=== PATIENT | male | born 1970 | race Caucasian/White ===

== ENCOUNTER 2023-10-11 10:40 | Emergency (ER) | payer MEDICARE, OTHER ==
[2023-10-11] MEDS ORDERED: FUROSEMIDE 10 MG/ML 4 ML VIAL ONE (16:12)
[2023-10-13] MEDS ORDERED: IPRATROPIUM-ALBUTEROL 3 ML NEB ONE (16:31)
--- NOTE | 2023-11-10 00:06 | XR ---
EXAMINATION TYPE: XR chest 2V DATE OF EXAM: 10/11/2023 COMPARISON: Chest radiographs from 10/30/2012 TECHNIQUE: XR chest 2V Frontal and lateral views of the chest. CLINICAL INDICATION:Male, 52 years old with history of LOW EXT SWELLING; FINDINGS: Lungs/Pleura: There is no evidence of pleural effusion, focal consolidation, or pneumothorax. Pulmonary vascularity: Unremarkable. Heart/mediastinum: Cardiomediastinal silhouette is unremarkable. Musculoskeletal: No acute osseous pathology. IMPRESSION: No acute cardiopulmonary disease/process.
== END 2023-10-11 16:40 | disposition home or self-care (01) ==
LOC: EC 10:40
CPT/HCPCS: 71046; 93005; 96374; 99284

== ENCOUNTER 2023-10-13 20:00 | Inpatient (IN) | payer MEDICARE, OTHER ==
[~2023-10-13 20:00] MED LIST: IPRATROPIUM-ALBUTEROL 3 ML NEB ONE; SODIUM CHLORIDE 0.9% 1,000 ML BAG ONE
[2023-10-13] MEDS ORDERED: FUROSEMIDE 10 MG/ML 4 ML VIAL ONE (20:25)
[2023-10-13] MEDS ORDERED: MORPHINE SULFATE 4 MG/ML SYRINGE ONE (21:39)
[2023-10-13] MEDS ORDERED: SODIUM CHLORIDE 0.9% 1,000 ML BAG ONE (23:59)
[2023-10-14] MEDS ORDERED: predniSONE 20 MG TAB ONE (00:27)
[2023-10-14] MEDS ORDERED: MORPHINE SULFATE 4 MG/ML SYRINGE ONE ×2 (06:08→10:27)
[2023-10-14] MEDS ORDERED: IPRATROPIUM-ALBUTEROL 3 ML NEB ONE ×2 (08:36→23:59)
[2023-10-14] MEDS ORDERED: NICOTINE 21MG/24HR PATCH TRANSDERM ONE (13:15)
[2023-10-14] MEDS ORDERED: methylPREDNISolone SOD SUCCI 125 MG/2 ML VIAL ONE ×2 (13:15→23:47)
[2023-10-14] MEDS ORDERED: HEPARIN SODIUM,PORCINE 5,000 UNIT/ML 1 ML VIAL ONE ×2 (13:16→21:44)
[2023-10-14] MEDS ORDERED: OLANZapine 5 MG TAB ONE (23:59)
[2023-10-14] MEDS ORDERED: PRAZOSIN 1 MG CAP ONE (23:59)
[2023-10-14] MEDS ORDERED: SODIUM CHLORIDE 0.9% 1,000 ML BAG ONE (23:59)
[2023-10-14] MEDS ORDERED: QUEtiapine 200 MG TAB ONE (23:59)
[2023-10-15] MEDS ORDERED: methylPREDNISolone SOD SUCCI 125 MG/2 ML VIAL ONE ×2 (06:34→13:02)
[2023-10-15] MEDS ORDERED: LEVOTHYROXINE 100 MCG TAB ONE (06:37)
[2023-10-15] MEDS ORDERED: PANTOPRAZOLE 40 MG TABLET PO ONE (08:59)
[2023-10-15] MEDS ORDERED: NICOTINE 21MG/24HR PATCH TRANSDERM ONE (08:59)
[2023-10-15] MEDS ORDERED: HEPARIN SODIUM,PORCINE 5,000 UNIT/ML 1 ML VIAL ONE ×2 (09:00→21:36)
[2023-10-15] MEDS ORDERED: QUEtiapine 200 MG TAB ONE (23:59)
[2023-10-15] MEDS ORDERED: ARIPiprazole 10 MG TAB ONE (23:59)
[2023-10-15] MEDS ORDERED: OLANZapine 5 MG TAB ONE (23:59)
[2023-10-15] MEDS ORDERED: PRAZOSIN 1 MG CAP ONE (23:59)
[2023-10-15] MEDS ORDERED: IPRATROPIUM-ALBUTEROL 3 ML NEB ONE (23:59)
[2023-10-16] MEDS ORDERED: IPRATROPIUM-ALBUTEROL 3 ML NEB ONE ×2 (00:29→04:26)
[2023-10-16] MEDS ORDERED: methylPREDNISolone SOD SUCCI 125 MG/2 ML VIAL ONE (05:55)
[2023-10-16] MEDS ORDERED: LEVOTHYROXINE 125 MCG TAB ONE (05:55)
[2023-10-16] MEDS ORDERED: PANTOPRAZOLE 40 MG TABLET PO ONE (08:56)
[2023-10-16] MEDS ORDERED: NICOTINE 21MG/24HR PATCH TRANSDERM ONE (08:56)
[2023-10-16] MEDS ORDERED: HEPARIN SODIUM,PORCINE 5,000 UNIT/ML 1 ML VIAL ONE (08:57)
--- NOTE | 2023-11-11 11:45 | US ---
[id number] DOMINIQUE NORWOOD : 1970 EXAM: Venous Doppler ultrasound of the lower extremities bilaterally DATE: 10/13/2023 INDICATION: FEET SWELLING, LEG CRAMPING. TECH IMP: BILATERAL LEG APPEAR NEG FOR DVT.'' COMPARISON: None, please note PACS downtime occurred during the radiologist interpretation of these i mages with limited priors/reports. TECHNIQUE: Multiple wolff scale, color Doppler and Doppler spectral ultrasound images were obtained of lower extremity veins. FINDINGS: Right lower extremity: -Common Femoral vein: Normal compressibility, color Doppler flow and venous spectral waveforms with augmentation. -Femoral vein: Normal compressibility. -Popliteal vein: Normal compressibility, color Doppler flow and venous spectral waveforms with augmen tation. -Posterior tibial vein: Normal color Doppler flow. -Greater saphenous vein: Normal compressibility, color Doppler flow and venous spectral wavefor ms with augmentation. Left lower extremity: -Common Femoral vein: Normal compressibility, color Doppler flow and venous spectral waveforms with augmentation. -Femoral vein: Normal compressibility. -Popliteal vein: Normal compressibility, color Doppler flow and venous spectral waveforms with augmen tation. -Posterior tibial vein: Normal color Doppler flow. -Greater saphenous vein: Normal compressibility, color Doppler flow and venous spectral wavefor ms with augmentation. Other: No significant findings. IMPRESSION: No ultrasound evidence for deep venous thrombosis of either lower extremity.
--- NOTE | 2023-11-11 17:36 | CDI ---
Documentation Clarification Form Date: 11/11/2023 05:25:32 PM From: Virgen Caldwell Phone: Admit Date: 10/13/2023 08:00:00 PM Patient Name: Arnie Melton Visit Number: [id number] Discharge Date: 10/16/2023 12:17:00 PM ATTENTION: The Clinical Documentation Specialists (CDI) and [facility] Coding Staff appreciate your assistance in clarifying documentation. Please respond to the clarification below the line at the bottom and electronically sign. The CDI & [facility] Coding staff will review the response and follow-up if needed. Please note: Queries are made part of the Legal Health Record. If you have any questions, please contact the author of this message via ITS. Doctor/Provider: Bc Martinez Conflicting types of Rhabdomyolysis is documented. Additional clarification regarding the type of rhabdomyolysis is requested. Unspec Rhabdo- per ED Note and DCS Nephro Consult- nontrauma Rhabdo Pulm Note 10/13- Rhabdo d/t to fall History/Risk Factors: 53yo M, ZACHARY, BPD, hypothyroidism induced myopathy, HTN, AECOPD Clinical Indicators: SOB and BLE swelling. Pt received fluids and CK trended down. Treatment: Synthroid was increased to more therapeutic and was counselled on importance of compliance and short course of steroids. Please clarify the type of rhabdomyolysis, if known: [ ] Traumatic rhabdomyolysis due to fall [ ] Non traumatic rhabdomyolysis due to medication (please specify) [ ] Other, please specify [ ] Unable to Determine (Template Last Revised: May 2020) [ ] Unable to Determine MTDD
--- NOTE | 2023-11-13 15:53 | XR ---
DOMINIQUE NORWOOD : 1970 EXAM: Chest radiograph 2 view. DATE: 10/13/2023 08:55 INDICATION: Reason for study: BILATERAL LOWER LEG EDEMA X 2 WEEKS COMPARISON: None, please note PACS downtime occurred during the radiologist interpretation of these i mages with limited priors/reports.. TECHNIQUE: Frontal and lateral views of the chest. FINDINGS: Lungs/Pleura: There is no evidence of pleural effusion, focal consolidation, or pneumothorax. Pulmonary vascularity: Unremarkable. Heart/mediastinum: Cardiomediastinal silhouette is unremarkable. Musculoskeletal: No acute osseous pathology. IMPRESSION: No acute cardiopulmonary disease/process.
--- NOTE | 2023-11-19 09:26 | CA ---
Transthoracic Echo Report Name: Arnie Melton Age: 52 Gender: O : 1970 Exam Date: 10/16/2023 08:30 Exam Location: [place] [facility] Ht (in): 67 Wt (lb): 279 Ordering Physician: Attending/Referring Phys: Customer Retention Representative Zahida Leblanc RDCS Procedure CPT: Indications: Chronic systolic (congestive) heart failure Cardiac Hx: Technical Quality: Fair Contrast 1: Definity Total Dose (mL): 2 Contrast 2: Total Dose (mL): MEASUREMENTS (Male / Female) Normal Values 2D ECHO LV Diastolic Diameter PLAX 5.2 cm 4.2 - 5.9 / 3.9 - 5.3 cm LV Systolic Diameter PLAX 3.6 cm IVS Diastolic Thickness 1.4 cm 0.6 - 1.0 / 0.6 - 0.9 cm LVPW Diastolic Thickness 1.2 cm 0.6 - 1.0 / 0.6 - 0.9 cm LV Relative Wall Thickness 0.5 RV Internal Dim ED PLAX 2.5 cm LA Systolic Diameter LX 4.0 cm 3.0 - 4.0 / 2.7 - 3.8 cm LV Diastolic Volume MOD BP 101.2 cm??? 67 - 155 / 56 - 104 cm??? LV Systolic Volume MOD BP 51.6 cm??? 22 - 58 / 19 - 49 cm??? LV Ejection Fraction MOD BP 49.0 % >= 55 % LV Diastolic Volume MOD 4C 113.5 cm??? LV Systolic Volume MOD 4C 50.2 cm??? LV Ejection Fraction MOD 4C 55.7 % LV Diastolic Length 4C 8.6 cm LV Systolic Length 4C 7.6 cm LV Diastolic Volume MOD 2C 83.9 cm??? LV Systolic Volume MOD 2C 52.7 cm??? LV Ejection Fraction MOD 2C 37.2 % LV Diastolic Length 2C 8.0 cm LV Systolic Length 2C 7.7 cm M-MODE Aortic Root Diameter MM 2.7 cm LA Systolic Diameter MM 3.7 cm LA Ao Ratio MM 1.4 AV Cusp Separation MM 2.0 cm DOPPLER Mitral E Point Velocity 90.4 cm/s Mitral A Point Velocity 84.6 cm/s Mitral E to A Ratio 1.1 MV Deceleration Time 223.9 ms MV E' Velocity 5.5 cm/s Mitral E to MV E' Ratio 16.4 TR Peak Velocity 219.0 cm/s TR Peak Gradient 19.2 mmHg Right Ventricular Systolic Press 24.2 mmHg FINDINGS Left Ventricle Left ventricular ejection fraction is estimated at 45-50%. Moderately increased septal wall thickness. Mildly decreased left ventricular ejection fraction. Left ventricular cavity size normal. No evidence of LV thrombus Right Ventricle Normal right ventricular size and function. Right ventricular systolic pressure within normal limits. Right Atrium Normal right atrial size. Left Atrium Normal left atrial size. Mitral Valve Structurally normal mitral valve. Trace mitral regurgitation. No mitral stenosis. Aortic Valve Trileaflet aortic valve. No aortic stenosis. No aortic regurgitation. Tricuspid Valve Structurally normal tricuspid valve. Trace tricuspid regurgitation. No tricuspid stenosis. Pulmonic Valve Structurally normal pulmonic valve. Trace pulmonic regurgitation. Pericardium No pericardial or pleural effusion. Aorta Normal size aortic root and proximal ascending aorta. CONCLUSIONS Left ventricular ejection fraction is estimated at 45-50%. Moderately increased septal wall thickness. Normal right ventricular size and function. No significant valvular dysfunction Previewed by: Dr Sang Paul (Electronically Signed) Final Date: 16 October 2023 17:22
--- NOTE | 2023-11-28 14:39 | HP ---
HISTORY AND PHYSICAL The patient was in room 457 upon my evaluation. HISTORY OF PRESENT ILLNESS: This is a 53-year-old gentleman, who has a history of hypertension, hyperlipidemia, nicotine dependence with COPD, who presented for evaluation of bilateral lower extremity pain, shortness of breath, weakness, increasing edema of the lower extremities. The patient states that for the last week and a half, he has noticed increasing lower extremity pain as well as increasing lower extremity swelling. He [facility] today to be evaluated for his swelling of the lower extremities, and was sent to the emergency room due to concern over perfusion issues since there was discoloration of both visible lower extremities. The patient otherwise denies fevers, chills, nausea, vomiting, chest pain, palpitations, syncope, presyncope. He does report increasing shortness of breath. He continues to be an active nicotine user with no intention to quit. In the emergency room, the patient was noted to be afebrile, 125/79, heart rate 71, 98% on room air. Initial workup CBC showed white blood cell count of 8.2, hemoglobin of 14.5, platelets of 301. Basic metabolic panel demonstrated elevated creatinine to 1.3. BNP was less than 20. Liver function test showed elevation of AST to 58, ALT to 24, alkaline phosphatase to 58. Creatine kinase was 2534. Coags are unremarkable. EKG demonstrated normal sinus rhythm with overall low QRS. Chest x-ray show no acute cardiopulmonary processes. REVIEW OF SYSTEMS: Noted in the HPI. All other systems are reviewed and only pertinent positives and negatives are listed in the HPI. PHYSICAL EXAMINATION: GENERAL: The patient is in no apparent distress. Appears nontoxic. RESPIRATORY: Demonstrates diffuse wheezing throughout all lung bolaños. No evidence of crackles. CARDIOVASCULAR: The patient has a quiet precordium, though appears regular without murmurs. EXTREMITIES: There is bilateral pitting edema to the mid key, which is 2+. GASTROINTESTINAL: Soft, nontender to palpation, nondistended. GENITOURINARY: Suprapubic tenderness is not present. Costovertebral angle tenderness is not present. MUSCULOSKELETAL: No appreciable rashes, cyanosis. Lower extremities are not discolored. Capillary refill is appropriate. NEUROLOGIC: Moving all extremities, nonfocal. PSYCHIATRIC: The patient is cooperative, euthymic mood. Judgment and insight are intact. LABORATORY DATA: Reviewed as above. IMAGING: Reviewed as above. ASSESSMENT AND PLAN: 1. Chronic obstructive pulmonary disease exacerbation. DuoNeb q.4 hours p.r.n. and q.6 hours scheduled. 2. Prednisone 40 mg daily, first dose now. Pulmonology was consulted by the emergency room. No indication for antibiotics at this time for prophylaxis. Once medication historian has completed history, we will resume any home chronic obstructive pulmonary disease medications such as Symbicort, which the patient thinks she takes, but is not clear about at this time. 3. Rhabdomyolysis, acute kidney injury. Nephrology was consulted by the emergency room. Continue IV fluids at 75 cc/hour. Repeat CK level in the morning. I recommend that we hold the patient's atorvastatin as this could be medication related. 4. Lower extremity edema: Echocardiogram was ordered, consideration of protein loss. Therefore, urine protein, creatinine, sodium were ordered. Lower extremity edema could also be due to significant pulmonary hypertension leading to early right heart failure, echocardiogram will be insightful. I will ask the Day Team to follow this. 5. Deep venous thrombosis prophylaxis: Heparin 5000 units t.i.d. I deferred to the Day Team to order this. The patient is a full code. MMODL / IJN: [id number] /
== END 2023-10-16 12:17 | disposition home or self-care (01) | DRG 683 ==
LOC: 4SSUR 20:00
PROVIDERS: ADMIT Internal Medicine; ATTEND Internal Medicine
DX: N17.9 Acute kidney failure, unspecified (principal); J44.1 Chronic obstructive pulmonary disease with (acute) exacerbation; M62.82 Rhabdomyolysis; F31.9 Bipolar disorder, unspecified; G73.7 Myopathy in diseases classified elsewhere; E03.9 Hypothyroidism, unspecified; I10 Essential (primary) hypertension; E34.8 Other specified endocrine disorders; Z79.890 Hormone replacement therapy; Z79.899 Other long term (current) drug therapy; E78.5 Hyperlipidemia, unspecified; F17.200 Nicotine dependence, unspecified, uncomplicated
CPT/HCPCS: 71046; 76770; 82570; 84156; 84300; 93306; 93970; 94640

== ENCOUNTER 2023-10-28 18:17 | Emergency (ER) | payer MEDICARE, OTHER ==
[2023-10-28 18:28] VITALS: TEMP 98.6
[2023-10-28] MEDS: methylPREDNISolone SOD SUCCI 125 MG/2 ML VIAL IV STA (19:06)
[2023-10-28] MEDS: IPRATROPIUM-ALBUTEROL 3 ML NEB INHALATION STA ×2 (19:18)
[2023-10-28 19:19] LABS: Anisocytosis Slight; Basophils # (A) 0.1 k/uL (0-0.2); Basophils % (A) 1 %; Eosinophils # (A) 0.3 k/uL (0-0.7); Eosinophils % (A) 2 %; HCT 39.8 % (39.0-53.0); HGB 12.7 gm/dL (13.0-17.5); Lymphocytes # (A) 2.6 k/uL (1.0-4.8); Lymphocytes % (A) 23 %; MCH 30.3 pg (25.0-35.0); MCV 94.6 fL (80.0-100.0); Mean Platelet Volume 7.8; Monocytes # (A) 0.8 k/uL (0-1.0); Monocytes % (A) 7 %; Neutrophils # (A) 7.8 k/uL (1.3-7.7); Neutrophils % (A) 67 %; Platelet Count 290 k/uL (150-450); RBC 4.21 m/uL (4.30-5.90); RDW 16.7 % (11.5-15.5); WBC 11.7 k/uL (3.8-10.6)
[2023-10-28 19:34] LABS: ALT 30 U/L (4-49); AST 32 U/L (17-59); African American GFR (CKD) 78 (>60 ml/min/1.73 sqM); Albumin 4.4 g/dL (3.5-5.0); Alkaline Phosphatase 74 U/L (38-126); Anion Gap 4 mmol/L; Blood Urea Nitrogen 18 mg/dL (9-20); Calcium 9.4 mg/dL (8.4-10.2); Carbon Dioxide 30 mmol/L (22-30); Chloride 101 mmol/L (98-107); Glucose 96 mg/dL (74-99); Magnesium 2.1 mg/dL (1.6-2.3); Non-African American GFR(CKD) 68 (>60 ml/min/1.73 sqM); Potassium 4.6 mmol/L (3.5-5.1); Sodium 135 mmol/L (137-145); Total Bilirubin 0.4 mg/dL (0.2-1.3); Total Protein 6.8 g/dL (6.3-8.2)
[2023-10-28 19:36] LABS: INR 0.9 (<1.2); Partial Thromboplastin Time 22.3 sec (22.0-30.0); Prothrombin Time 9.8 sec (10.0-12.5)
[2023-10-28 19:41] LABS: NT-Pro-B-Type Natriuretic Pept <20 pg/mL
--- NOTE | 2023-10-28 20:21 | XR ---
EXAMINATION TYPE: XR chest 2V DATE OF EXAM: 10/28/2023 7:56 PM CLINICAL INDICATION: Male, 52 years old with history of difficulty breathing; COMPARISON: Chest radiographs from 10/30/2012 TECHNIQUE: XR chest 2V Frontal view of the chest. FINDINGS: Lungs/Pleura: There is no evidence of pleural effusion, focal consolidation, or pneumothorax. Pulmonary vascularity: Unremarkable. Heart/mediastinum: Cardiomediastinal silhouette is unremarkable. Musculoskeletal: No acute osseous pathology. IMPRESSION: No acute cardiopulmonary disease/process.
--- NOTE | 2023-10-28 21:23 | US ---
EXAMINATION TYPE: US venous doppler duplex LE BI DATE OF EXAM: 10/28/2023 7:51 PM COMPARISON: 10/13/23 CLINICAL INDICATION: Male, 52 years old with history of swelling; Patient states pain and swelling in both legs. No hx of dvt. patient not on thinners SIDE PERFORMED: Bilateral TECHNIQUE: The lower extremity deep venous system is examined utilizing real time linear array sonog rafael with graded compression, doppler sonography and color-flow sonography. VESSELS IMAGED: Common Femoral Vein Deep Femoral Vein Greater Saphenous Vein * Femoral Vein Popliteal Vein Small Saphenous Vein * Proximal Calf Veins (* superficial vessels) slightly limited due to patient body habitus Right Leg: appears negative for dvt Left Leg: appears negative for dvt IMPRESSION: No sonographic evidence for deep venous thrombosis of either extremity.
--- NOTE | 2023-10-28 23:58 | ED ---
General Adult HPI - General Source: patient Mode of arrival: wheelchair Limitations: no limitations <Vadim May - Last Filed: 10/29/23 00:45> <Kelly Perera - Last Filed: 10/29/23 03:27> - General Chief complaint: Shortness of Breath Stated complaint: Abn Labs Time Seen by Provider: 10/28/23 18:34 - History of Present Illness Initial comments: 52-year-old male presenting with chief complaint of shortness of breath. History of COPD and currently smokes 1 pack/day. He is also complaining of swelling to the bilateral legs. States that he was in the hospital recently but is unable to tell me much about the visit. He states that he gets chest pain daily and this has been "since forever". No abdominal pain, nausea, vomiting. No fevers or chills. No cough, congestion, sore throat. (Vadim May) - Related Data Allergies Allergy/AdvReac Type Severity Reaction Status Date / Time codeine Allergy Rash/Hives Verified 10/28/23 18:28 Penicillins Allergy Rash/Hives Verified 10/28/23 18:28 Review of Systems ROS Other: All systems not noted in ROS Statement are negative. <Vadim May - Last Filed: 10/29/23 00:45> ROS Other: All systems not noted in ROS Statement are negative. <Kelly Perera - Last Filed: 10/29/23 03:27> ROS Statement: Those systems with pertinent positive or pertinent negative responses have been documented in the HPI. Past Medical History Past Medical History: Asthma, COPD, Hyperlipidemia, Hypertension, Thyroid Disorder Additional Past Surgical History / Comment(s): skin graft Past Psychological History: Bipolar Smoking Status: Current every day smoker <Vadim May - Last Filed: 10/29/23 00:45> General Exam Limitations: no limitations General appearance: alert, in no apparent distress Head exam: Present: atraumatic, normocephalic Eye exam: Present: normal appearance, EOMI Neck exam: Present: normal inspection. Absent: meningismus Respiratory exam: Present: wheezes. Absent: respiratory distress, rales, rhonchi, stridor Cardiovascular Exam: Present: regular rate, normal rhythm, normal heart sounds. Absent: systolic murmur, diastolic murmur, rubs, gallop, clicks Extremities exam: Present: pedal edema Neurological exam: Present: alert, oriented X3 Psychiatric exam: Present: normal affect, normal mood Skin exam: Present: warm, dry <Vadim May - Last Filed: 10/29/23 00:45> Course Vital Signs 10/28/23 10/28/23 10/28/23 18:25 19:20 19:45 Temperature 98.6 F Pulse Rate 100 79 79 Respiratory 20 Rate Blood Pressure 133/68 O2 Sat by Pulse 98 Oximetry 10/28/23 10/28/23 10/28/23 19:52 20:28 23:33 Temperature Pulse Rate 76 73 Respiratory 18 16 18 Rate Blood Pressure 109/87 115/80 O2 Sat by Pulse 95 97 Oximetry 10/29/23 10/29/23 02:29 02:45 Temperature Pulse Rate 80 80 Respiratory 19 20 Rate Blood Pressure 119/80 115/99 O2 Sat by Pulse 97 97 Oximetry Medical Decision Making - Lab Data Result diagrams: 10/28/23 19:03 10/28/23 19:03 <Vadim May - Last Filed: 10/29/23 00:45> - Lab Data Result diagrams: 10/28/23 19:03 10/28/23 19:03 <Kelly Perera - Last Filed: 10/29/23 03:27> - Medical Decision Making Was pt. sent in by a medical professional or institution (CATHERINE Reyna, CULTURE ROOM WORKER, urgent care, hospital, or custodial...) When possible be specific @ -[No] Did you speak to anyone other than the patient for history (EMS, parent, family, police, friend...)? What history was obtained from this source @ -[No] Did you review nursing and triage notes (agree or disagree)? Why? @ -[I reviewed and agree with nursing and triage notes] Were old charts reviewed (outside hosp., previous admission, EMS record, old EKG, old radiological studies, urgent care reports/EKG's, custodial records)? Report findings @ -[No old charts were reviewed] Differential Diagnosis (chest pain, altered mental status, abdominal pain women, abdominal pain men, vaginal bleeding, weakness, fever, dyspnea, syncope, headache, dizziness, GI bleed, back pain, seizure, CVA, palpatations, mental health, musculoskeletal)? @ -MDM Differential Dyspnea: Coronary syndrome, arrhythmia, tamponade, asthma, COPD, pulmonary embolism, pneumonia, pneumothorax, pulmonary effusion, anaphylaxis, diabetic ketoacidosis, flailed chest, pulmonary contusion, diaphragmatic rupture, anemia, neuromuscul ar this is not meant to be an all-inclusive list. EKG interpreted by me (3pts min.). @ -[As above] X-rays interpreted by me (1pt min.). @ -Chest x-ray shows no acute process CT interpreted by me (1pt min.). @ -[None done] U/S interpreted by me (1pt. min.). @ -Ultrasound negative for DVT What testing was considered but not performed or refused? (CT, X-rays, U/S, labs)? Why? @ -[None] What meds were considered but not given or refused? Why? @ -[None] Did you discuss the management of the patient with other professionals (professionals i.e. , PA, CULTURE ROOM WORKER, lab, RT, psych nurse, administrator social welfare, manager culinary, teacher, airfield engineer officer, nurse case management)? Give summary @ -[No] Was smoking cessation discussed for >3mins.? @ -[No] Was critical care preformed (if so, how long)? @ -[No] Were there social determinants of health that impacted care today? How? (Homelessness, low income, unemployed, alcoholism, drug addiction, transportation, low edu. Level, literacy, decrease access to med. care, longterm, rehab)? @ -[No] Was there de-escalation of care discussed even if they declined (Discuss DNR or withdrawal of care, Hospice)? DNR status @ -[No] What co-morbidities impacted this encounter? (DM, HTN, Smoking, COPD, CAD, Cancer, CVA, ARF, Chemo, Hep., AIDS, mental health diagnosis, sleep apnea, m orbid obesity)? @ -Hypothyroidism Was patient admitted / discharged? Hospital course, mention meds given and route, prescriptions, significant lab abnormalities, going to OR and other pertinent info. @ -52-year-old male presenting with chief complaint of shortness of breath as well as bilateral lower extremity edema. Negative chest x-ray and ultrasound of the bilateral lower extremities. Negative troponin. TSH is over 100,000. Free T4 is pending. Patient is signed out to Kelly Perera PA-C (Vadim May) Patient was signed out to me pending results of free T4. Patient's free T4 0.51. Patient feels comfortable following up outpatient with his primary care provider. States that he will call the office in the morning to schedule appointment. All questions answered at bedside and strict return prior discussed with the patient is verbalized understanding. discused with Dr. West (Kelly Perera) - Lab Data Lab Results 10/28/23 10/28/23 10/28/23 Range/Units 19:03 19:03 19:03 WBC 11.7 H (3.8-10.6) k/uL RBC 4.21 L (4.30-5.90) m/uL Hgb 12.7 L (13.0-17.5) gm/dL Hct 39.8 (39.0-53.0) % MCV 94.6 (80.0-100.0) fL MCH 30.3 (25.0-35.0) pg MCHC 32.0 (31.0-37.0) g/dL RDW 16.7 H (11.5-15.5) % Plt Count 290 (150-450) k/uL MPV 7.8 Neutrophils % 67 % Lymphocytes % 23 % Monocytes % 7 % Eosinophils % 2 % Basophils % 1 % Neutrophils # 7.8 H (1.3-7.7) k/uL Lymphocytes # 2.6 (1.0-4.8) k/uL Monocytes # 0.8 (0-1.0) k/uL Eosinophils # 0.3 (0-0.7) k/uL Basophils # 0.1 (0-0.2) k/uL Anisocytosis Slight PT 9.8 L (10.0-12.5) sec INR 0.9 (<1.2) APTT 22.3 (22.0-30.0) sec Sodium 135 L (137-145) mmol/L Potassium 4.6 (3.5-5.1) mmol/L Chloride 101 (98-107) mmol/L Carbon Dioxide 30 (22-30) mmol/L Anion Gap 4 mmol/L BUN 18 (9-20) mg/dL Creatinine 1.22 (0.66-1.25) mg/dL Est GFR (CKD-EPI)AfAm 78 (>60 ml/min/1.73 sqM) Est GFR (CKD-EPI)NonAf 68 (>60 ml/min/1.73 sqM) Glucose 96 (74-99) mg/dL Plasma Lactic Acid Marcus (0.7-2.0) mmol/L Calcium 9.4 (8.4-10.2) mg/dL Magnesium 2.1 (1.6-2.3) mg/dL Total Bilirubin 0.4 (0.2-1.3) mg/dL AST 32 (17-59) U/L ALT 30 (4-49) U/L Alkaline Phosphatase 74 (38-126) U/L Troponin I (0.000-0.034) ng/mL NT-Pro-B Natriuret Pep <20 pg/mL Total Protein 6.8 (6.3-8.2) g/dL Albumin 4.4 (3.5-5.0) g/dL TSH (0.465-4.680) mIU/L Free T4 (0.78-2.19) ng/dL Urine Color Urine Appearance (Clear) Urine pH (5.0-8.0) Ur Specific [place] (1.001-1.035) Urine Protein (Negative) Urine Glucose (UA) (Negative) Urine Ketones (Negative) Urine Blood (Negative) Urine Nitrite (Negative) Urine Bilirubin (Negative) Urine Urobilinogen (<2.0) mg/dL Ur Leukocyte Esterase (Negative) 10/28/23 10/28/23 10/28/23 Range/Units 19:03 19:03 19:03 WBC (3.8-10.6) k/uL RBC (4.30-5.90) m/uL Hgb (13.0-17.5) gm/dL Hct (39.0-53.0) % MCV (80.0-100.0) fL MCH (25.0-35.0) pg MCHC (31.0-37.0) g/dL RDW (11.5-15.5) % Plt Count (150-450) k/uL MPV Neutrophils % % Lymphocytes % % Monocytes % % Eosinophils % % Basophils % % Neutrophils # (1.3-7.7) k/uL Lymphocytes # (1.0-4.8) k/uL Monocytes # (0-1.0) k/uL Eosinophils # (0-0.7) k/uL Basophils # (0-0.2) k/uL Anisocytosis PT (10.0-12.5) sec INR (<1.2) APTT (22.0-30.0) sec Sodium (137-145) mmol/L Potassium (3.5-5.1) mmol/L Chloride (98-107) mmol/L Carbon Dioxide (22-30) mmol/L Anion Gap mmol/L BUN (9-20) mg/dL Creatinine (0.66-1.25) mg/dL Est GFR (CKD-EPI)AfAm (>60 ml/min/1.73 sqM) Est GFR (CKD-EPI)NonAf (>60 ml/min/1.73 sqM) Glucose (74-99) mg/dL Plasma Lactic Acid Marcus 1.0 (0.7-2.0) mmol/L Calcium (8.4-10.2) mg/dL Magnesium (1.6-2.3) mg/dL Total Bilirubin (0.2-1.3) mg/dL AST (17-59) U/L ALT (4-49) U/L Alkaline Phosphatase (38-126) U/L Troponin I <0.012 (0.000-0.034) ng/mL NT-Pro-B Natriuret Pep pg/mL Total Protein (6.3-8.2) g/dL Albumin (3.5-5.0) g/dL TSH >100.000 H (0.465-4.680) mIU/L Free T4 0.51 L (0.78-2.19) ng/dL Urine Color Urine Appearance (Clear) Urine pH (5.0-8.0) Ur Specific [place] (1.001-1.035) Urine Protein (Negative) Urine Glucose (UA) (Negative) Urine Ketones (Negative) Urine Blood (Negative) Urine Nitrite (Negative) Urine Bilirubin (Negative) Urine Urobilinogen (<2.0) mg/dL Ur Leukocyte Esterase (Negative) 10/28/23 Range/Units 23:10 WBC (3.8-10.6) k/uL RBC (4.30-5.90) m/uL Hgb (13.0-17.5) gm/dL Hct (39.0-53.0) % MCV (80.0-100.0) fL MCH (25.0-35.0) pg MCHC (31.0-37.0) g/dL RDW (11.5-15.5) % Plt Count (150-450) k/uL MPV Neutrophils % % Lymphocytes % % Monocytes % % Eosinophils % % Basophils % % Neutrophils # (1.3-7.7) k/uL Lymphocytes # (1.0-4.8) k/uL Monocytes # (0-1.0) k/uL Eosinophils # (0-0.7) k/uL Basophils # (0-0.2) k/uL Anisocytosis PT (10.0-12.5) sec INR (<1.2) APTT (22.0-30.0) sec Sodium (137-145) mmol/L Potassium (3.5-5.1) mmol/L Chloride (98-107) mmol/L Carbon Dioxide (22-30) mmol/L Anion Gap mmol/L BUN (9-20) mg/dL Creatinine (0.66-1.25) mg/dL Est GFR (CKD-EPI)AfAm (>60 ml/min/1.73 sqM) Est GFR (CKD-EPI)NonAf (>60 ml/min/1.73 sqM) Glucose (74-99) mg/dL Plasma Lactic Acid Marcus (0.7-2.0) mmol/L Calcium (8.4-10.2) mg/dL Magnesium (1.6-2.3) mg/dL Total Bilirubin (0.2-1.3) mg/dL AST (17-59) U/L ALT (4-49) U/L Alkaline Phosphatase (38-126) U/L Troponin I (0.000-0.034) ng/mL NT-Pro-B Natriuret Pep pg/mL Total Protein (6.3-8.2) g/dL Albumin (3.5-5.0) g/dL TSH (0.465-4.680) mIU/L Free T4 (0.78-2.19) ng/dL Urine Color Colorless Urine Appearance Clear (Clear) Urine pH 6.0 (5.0-8.0) Ur Specific [place] 1.014 (1.001-1.035) Urine Protein Negative (Negative) Urine Glucose (UA) Negative (Negative) Urine Ketones Negative (Negative) Urine Blood Negative (Negative) Urine Nitrite Negative (Negative) Urine Bilirubin Negative (Negative) Urine Urobilinogen <2.0 (<2.0) mg/dL Ur Leukocyte Esterase Negative (Negative) Disposition <Vadim May - Last Filed: 10/29/23 00:45> Is patient prescribed a controlled substance at d/c from ED?: No Time of Disposition: 01:13 <Kelly Perera - Last Filed: 10/29/23 03:27> Clinical Impression: COPD (chronic obstructive pulmonary disease), Hypothyroidism Disposition: HOME SELF-CARE Condition: Good Instructions (If sedation given, give patient instructions): Hypothyroidism (ED) Additional Instructions: Return to the emergency department for any new or worsening symptoms. Recommend follow up with your primary care provider this week for further evaluation. Referrals: Ferny Guillermo [Primary Care Provider] - 1-2 days
[2023-10-29 00:40] LABS: Appearance,Urine Clear (Clear); Bilirubin,Urine Negative (Negative); Blood,Urine Negative (Negative); Color,Urine Colorless; Glucose,Urine (UA) Negative (Negative); Ketones,Urine Negative (Negative); Leukocyte Esterase,Urine Negative (Negative); Nitrite,Urine Negative (Negative); Protein,Urine Negative (Negative); Specific Gravity,Urine 1.014 (1.001-1.035); Urobilinogen,Urine <2.0 mg/dL (<2.0)
[2023-10-29 01:02] LABS: T4, Free (Free Thyroxine) 0.51 ng/dL (0.78-2.19)
[2023-10-29 02:32] VITALS: PULSE 80
[2023-10-29 02:46] VITALS: BP 115/99; RESP 20
--- NOTE | 2023-12-03 13:57 | US ---
Patient Arnie Melton ID [id number] EXAMINATION TYPE: US kidneys/renal and bladder DATE OF EXAM: 10/14/2023 COMPARISON: None available during PACS downtime Real-time sector scanning sonography is performed over the bilateral kidneys. Right kidney measures 10.3 x 4.0 x 5.3 cm. Urinary bladder is sonolucent. The posterior wall is normal. Left kidney measures 11.9 x 4.8 x 4.8 cm. No masses cysts or hydronephrosis are evident within either kidney. Urinary bladder ureteral jets are not identified. IMPRESSIONS: 1. Unremarkable bilateral renal ultrasound
== END 2023-10-29 02:50 | disposition home or self-care (01) ==
LOC: EC 18:17
DX: J44.89 Other specified chronic obstructive pulmonary disease (principal); E03.9 Hypothyroidism, unspecified; F17.210 Nicotine dependence, cigarettes, uncomplicated; Z88.0 Allergy status to penicillin; Z88.5 Allergy status to narcotic agent
CPT/HCPCS: 36415; 94640; 93005; 84439; 83880; 80053; 84443; 83605; 83735; 84484; 85025; 85610; 85730; 81003; 71046; 93970; 99285; 96374; J2919

== ENCOUNTER → 2024-01-02 | Outpatient (CLI) | payer MEDICARE, OTHER ==
[2024-01-02 16:01] LABS: ALT 17 U/L (10-49); AST 23 U/L (14-35); Albumin/Globulin Ratio 2.11 Ratio (1.60-3.17); Alkaline Phosphatase 63 U/L (41-126); Calcium 8.9 mg/dL (8.7-10.3); Carbon Dioxide 26.8 mmol/L (21.6-31.8); Chloride 101 mmol/L (96-109); Chol/HDL Ratio 9.89 Ratio; Globulin 1.9 g/dL (1.6-3.3); Glucose 92 mg/dL (70-110); Iron 129 UG/DL (65-175); Potassium 4.8 mmol/L (3.5-5.5); Sodium 138 mmol/L (135-145); Total Bilirubin 0.3 mg/dL (0.3-1.2); Total Iron Binding Capacity 423 UG/DL (228-460); Total Protein 5.9 g/dL (6.2-8.2)
[2024-01-02 16:02] LABS: Ferritin 95.4 ng/mL (22.0-322.0)
== END | disposition home or self-care (01) ==
LOC: LABWHC1 11:14
PROVIDERS: ATTEND Nurse Practitioner Family
DX: E03.9 Hypothyroidism, unspecified (principal); J44.1 Chronic obstructive pulmonary disease with (acute) exacerbation; F45.8 Other somatoform disorders; E78.00 Pure hypercholesterolemia, unspecified; G47.00 Insomnia, unspecified; G43.909 Migraine, unspecified, not intractable, without status migrainosus; R06.2 Wheezing
CPT/HCPCS: 36415; 80053; 80061; 82728; 83540; 83550; 83721; 84443

== ENCOUNTER → 2024-01-15 | Outpatient (CLI) | payer MEDICARE, OTHER ==
[2024-01-15 15:52] VITALS: BP 110/73; PULSE 74; RESP 16; TEMP 98
--- NOTE | 2024-01-15 16:18 | P.SLEEP ---
History of Present Illness DATE: 01/15/2024 CONSULTATION/NEW PATIENT EVALUATION HISTORY OF PRESENT ILLNESS/SLEEP-WAKE EVALUATION: 53-year-old gentleman had been evaluated in the sleep center for possible obstructive sleep apnea hypopnea syndrome. SLEEP SCHEDULE: Usually sleep schedule from 7 PM to 5 AM. FALLING ASLEEP: Patient has difficulties with falling asleep, although no TV in bedroom. DURING SLEEP: Patient usually sleeps on the side position with snoring and witnessed episodes of stop breathing during the sleep. Positive history of sleepwalking, awakenings with dry mouth, panic attacks, gasping for air, restless legs, sleep talking, nocturia. Patient wakes up from sleep 5 times with 5 episodes of nocturia. No history of hypnogogical hallucinations, sleep paralysis, or cataplexy. DURING THE DAY/WAKE STATE: In the morning patient wake up tired, has difficulties to pay attention, falling asleep during the day, has problems with memory, concentration, irritability, depression and anxiety. Beggs sleepiness scale is 8. Patient takes 2 naps at the afternoon. PAST MEDICAL HISTORY: Hypertension, COPD, asthma, emphysema, anxiety, depression, hypothyroidism, hyperlipidemia. PAST SURGICAL HISTORY: Kidney stone. MEDICATIONS: Albuterol, aripiprazole 10 mg once a day, Prozac 10 mg once a day, Vistaril 50 mg 3 times a day, Seroquel 200 mg at bedtime, atorvastatin 20 mg once a day. SOCIAL HISTORY: Please see below. FAMILY HISTORY: Please see below. REVIEW OF SYSTEMS: Snoring, multiple awakenings from sleep, sleepiness during the day. No fevers. No double vision. No recent chest pain. No shortness of breath. No abdominal pain. No bleeding episodes. No blood in urine. No seizure episodes. PHYSICAL EXAMINATION: GENERAL: A pleasant patient without any distress. VITAL SIGNS: Please see below, weight 240 pounds, BMI 38.7. HEENT: PERRLA, EOMI. Evaluation of oropharynx showed tongue protrudes midline, low position of soft palate Mallampati 4. NECK: Supple. No JVD. Thyroid is not palpable. 18-3/4 inches in circumference. LUNGS: Wheezing bilaterally. HEART: S1, S2 regular. No murmurs, gallops or rubs. ABDOMEN: Soft and nontender. Bowel sounds are present. No organomegaly appreciated. EXTREMITIES: No clubbing or cyanosis. INCIDENT RESPONSE MANAGER: Awake, alert, and oriented x3. Cranial nerves 2 to 7 intact. There is no fasciculation or atrophy noted. No focal deficits observed. ASSESSMENT: 1. Snoring, multiple awakenings from sleep, extremely low position of soft palate Mallampati 3, wide neck 18 and three-quarter inches in circumference, sleepiness with 2 naps during the day. Obstructive sleep apnea hypopnea syndrome. 2. Obesity, BMI 38.7. 3. Hypertension. 4. History of COPD, asthma, emphysema. 5 history of anxiety and depression. 6 . Hypothyroidism. 7. Hyperlipidemia. 8. History of kidney stone. 9 . 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 PLAN: 1. Polysomnography for evaluation of patient's breathing during sleep. 2. After reading sleep study 3. Preferable position during sleep on the side. 4. No driving if patient feels any sleepiness. Patient is aware of civil and criminal liability for unsafe driving. 5. Sleep hygiene with regular sleep time for at least 7.5-8 hours. 6. Watching and losing weight. Thank you very much for referring this patient for consultation. Sincerely, Dyllan Braden MD, PhD, FAASM. Diplomat of [place] [employer], Sleep Medicine Board by [employer] [employer] Cpr Instructor of [employer] [facility] [place] cc: Ferny Guillermo MD Past Medical History Past Medical History: Asthma, COPD, Hyperlipidemia, Hypertension, Thyroid Disorder History of Any Multi-Drug Resistant Organisms: None Reported Additional Past Surgical History / Comment(s): skin graft Past Anesthesia/Blood Transfusion Reactions: No Reported Reaction Past Psychological History: Bipolar Smoking Status: Current every day smoker Past Alcohol Use History: Rare Past Drug Use History: None Reported - Past Family History Mother Family Medical History: Coronary Artery Disease (CAD), Diabetes Mellitus, Hypertension Father Family Medical History: Cancer, Coronary Artery Disease (CAD), Dementia Additional Family Medical History / Comment(s): pancreatic cancer, dementia Medications and Allergies Allergies Allergy/AdvReac Type Severity Reaction Status Date / Time codeine Allergy Rash/Hives Verified 10/28/23 18:28 Penicillins Allergy Rash/Hives Verified 10/28/23 18:28 Physical Exam Vitals: Vital Signs Temp Pulse Resp BP Pulse Ox 01/15/24 15:48 98 F 74 16 110/73 98 Intake and Output 01/15/24 01/15/24 01/15/24 06:59 14:59 22:59 Other: Weight 108.862 kg Sleep Note - Sleep Data ESS Total: 8 - Sleep Note Sleep Note: Temperature: 98 F Pulse Rate: 74 Respiratory Rate: 16 Blood Pressure: 110/73 SpO2: 98 Height: 5 ft 6 in Weight: 108.862 kg BMI: Neck Circumference: 18.7
== END ==
LOC: 3 N SLEEP 14:52
PROVIDERS: ATTEND Internal Medicine
DX: G47.33 Obstructive sleep apnea (adult) (pediatric) (principal); E66.9 Obesity, unspecified; I10 Essential (primary) hypertension; J43.9 Emphysema, unspecified; F41.9 Anxiety disorder, unspecified; F32.A Depression, unspecified; E78.5 Hyperlipidemia, unspecified; E03.9 Hypothyroidism, unspecified; Z87.442 Personal history of urinary calculi; Z68.38 Body mass index [BMI] 38.0-38.9, adult; Z88.5 Allergy status to narcotic agent; Z88.0 Allergy status to penicillin; Z86.69 Personal history of other diseases of the nervous system and sense organs
CPT/HCPCS: 99211